=== PATIENT | female | born 1995 | race African-American/Black ===

== ENCOUNTER 2022-01-15 17:12 | Inpatient (IN) | payer MEDICAID, OTHER ==
[~2022-01-15] VITALS: Ht 165.1 cm; Wt 48.1 kg
[~2022-01-15 17:12] MED LIST: ACETYLCYSTEINE IV ONE; DEXT 5% IV ONE; WATER IV ONE
[2022-01-15] MEDS ORDERED: ONDANSETRON HCL 4MG/2ML INJ IV ONE (17:30)
[2022-01-15] MEDS ORDERED: SODIUM CHLORIDE 0.9% 1,000 ML IV ONE (17:30)
[2022-01-15 19:47] LABS: BASOPHILS % 1.3 % (0.0-2.0); EOSINOPHILS % 0.3 % (0.0-5.0); HEMATOCRIT. 30.5 % (36.0-48.0); HEMOGLOBIN. 8.9 g/dL (12.0-16.0); LYMPHOCYTES % 20.4 % (20.0-50.0); MEAN CORPUSCULAR HEMOGLOBIN 17.7 pg (28.0-32.0); MEAN CORPUSCULAR VOLUME 60.3 fL (81.0-99.0); MEAN PLATELET VOLUME 8.6 fl (7.4-10.4); MONOCYTES % 12.5 % (2.0-8.0); NEUTROPHILS % 65.5 % (40.0-76.0); PLATELET 362 x1000/uL (130-400); RED BLOOD CELL COUNT 5.05 mill/uL (4.2-5.4); RED CELL DISTRIBUTION WIDTH 26.1 % (11.6-14.6)
[2022-01-15 19:54] LABS: CHLORIDE 108 mEq/L (98-107)
[2022-01-15 19:55] LABS: HCG SCREEN NEGATIVE
[2022-01-15 20:09] LABS: ETHANOL BLOOD < 10 mg/dL
[2022-01-15] MEDS ORDERED: POTASSIUM CHLORIDE 20MEQ TABLET SR PO ONE (20:45)
[2022-01-15] MEDS ORDERED: MAGNESIUM 2 G PREMIX 50 ML IV ONE (20:45)
[2022-01-15 21:19] LABS: PLATELET ESTIMATE NORMAL
[2022-01-15 21:27] LABS: CLARITY URINE TURBID (CLEAR); COLOR URINE RED (YELLOW); KETONES URINE NEGATIVE (NEGATIVE); LEUKOCYTE ESTERASE URINE 2+ (NEGATIVE); NITRITE URINE POSITIVE (NEGATIVE); OCCULT BLOOD URINE 2+ (NEGATIVE); PROTEIN URINE 2+ (NEGATIVE); SPECIFIC GRAVITY URINE 1.044 (1.005-1.030); UROBILINOGEN URINE 0.2 E.U./dL (0.2-1.0)
[2022-01-15] MEDS ORDERED: MIDAZOLAM HCL 2 MG/2 ML VIAL IV ONE (21:30)
[2022-01-15] MEDS ORDERED: WATER IV NR (21:30)
[2022-01-15] MEDS ORDERED: ACETYLCYSTEINE IV NR (21:30)
[2022-01-15] MEDS ORDERED: DEXT 5% IV NR (21:30)
[2022-01-15 21:43] LABS: *BARBITURATES SCREEN URINE NEGATIVE (NEGATIVE); *BENZODIAZEPINES SCREEN URINE NEGATIVE (NEGATIVE); *COCAINE SCREEN URINE NEGATIVE (NEGATIVE); METHADONE URINE SCREEN NEGATIVE (NEGATIVE); OPIATES URINE SCREEN NEGATIVE (NEGATIVE); PHENCYCLIDINE URINE SCREEN NEGATIVE (NEGATIVE)
[2022-01-15 21:57] LABS: *AMPHETAMINES SCREEN URINE PRESUMTIVE POSITIVE (NEGATIVE); CANNABINOID URINE SCREEN PRESUMTIVE POSITIVE (NEGATIVE)
[2022-01-15] MEDS ORDERED: WATER IV ONE (22:30)
[2022-01-15] MEDS ORDERED: ACETYLCYSTEINE IV ONE (22:30)
[2022-01-15] MEDS ORDERED: CEFTRIAXONE 1 G PREMIX 50 ML IV ONE (22:30)
[2022-01-15] MEDS ORDERED: DEXT 5% IV ONE (22:30)
[2022-01-15 22:53] LABS: CHLORIDE 106 mEq/L (98-107)
[2022-01-15 23:00] LABS: ETHANOL BLOOD < 10 mg/dL
[2022-01-15] MEDS ORDERED: CEFTRIAXONE 1 G PREMIX 50 ML IV NR (23:45)
[2022-01-16 00:15] VITALS: BP_SYST 148; BP_SYST 168; BP_DIAS 85; BP_DIAS 92
[2022-01-16 02:00] VITALS: BP 147/93
[2022-01-16] MEDS ORDERED: ONDANSETRON HCL 4MG/2ML INJ IV PRN (02:00)
[2022-01-16] MEDS ORDERED: ACETYLCYSTEINE 200MG/ML 20% VIAL 30ML (INJ) IV ONE (02:00)
[2022-01-16] MEDS ORDERED: DEXT 5% IV ONE (02:30)
[2022-01-16] MEDS ORDERED: ACETYLCYSTEINE IV ONE (02:30)
[2022-01-16] MEDS ORDERED: WATER IV ONE (02:30)
[2022-01-16 04:00] VITALS: BP 119/77
[2022-01-16] MEDS ORDERED: DEXT 5%/0.45% NACL KCL 20MEQ/L 1,000 ML IV SCH (04:00)
[2022-01-16 06:00] VITALS: BP 125/83
[2022-01-16 06:25] LABS: MEAN CORPUSCULAR HEMOGLOBIN 17.9 pg (28.0-32.0); MEAN CORPUSCULAR VOLUME 61.6 fL (81.0-99.0); MEAN PLATELET VOLUME 8.7 fl (7.4-10.4); PLATELET 379 x1000/uL (130-400); RED BLOOD CELL COUNT 5.04 mill/uL (4.2-5.4); RED CELL DISTRIBUTION WIDTH 25.3 % (11.6-14.6)
[2022-01-16 06:36] LABS: CHLORIDE 107 mEq/L (98-107)
[2022-01-16] MEDS ORDERED: PANTOPRAZOLE SODIUM 40 MG/VIAL IV SCH (09:00)
[2022-01-16 09:05] LABS: PLATELET ESTIMATE NORMAL
== END 2022-01-16 08:20 | disposition left against medical advice (07) | DRG 812 ==
LOC: ER 17:12 → 5EST 21:04 → EDBEDREQTM 21:19 → EDBEDREQ 21:19 → ENRESERV 21:42 → CANRESERV 21:42 → EDBEDREQSVC 23:01 → ENRESERV 23:03 → 5EST 01-16 02:38
PROVIDERS: ADMIT Internal Medicine; ATTEND Internal Medicine
DX: T39.1X1A Poisoning by 4-Aminophenol derivatives, accidental (unintentional), initial encounter (principal); D64.9 Anemia, unspecified; T40.411A Poisoning by fentanyl or fentanyl analogs, accidental (unintentional), initial encounter; N39.0 Urinary tract infection, site not specified; F11.90 Opioid use, unspecified, uncomplicated; F12.90 Cannabis use, unspecified, uncomplicated; Z53.29 Procedure and treatment not carried out because of patient's decision for other reasons
CPT/HCPCS: 36415; 80053; 80305; 80307; 80320; 80329; 81003; 84703; 85025; 93005; 99291; J0132; J0696; J2250; J2405; J3475; J7030; J7060; G0480

== ENCOUNTER 2023-05-15 06:06 | Emergency (ER) | payer MEDICAID, OTHER ==
[~2023-05-15] VITALS: Ht 165.1 cm; Wt 74.6 kg
[2023-05-15 06:16] VITALS: O2SAT 10
[2023-05-15 08:22] LABS: BASOPHILS % 0.6 % (0.0-2.0); EOSINOPHILS % 0.9 % (0.0-5.0); HEMATOCRIT. 31.3 % (36.0-48.0); HEMOGLOBIN. 10.3 g/dL (12.0-16.0); LYMPHOCYTES % 26.9 % (20.0-50.0); MEAN CORPUSCULAR HEMOGLOBIN 30.8 pg (28.0-32.0); MEAN CORPUSCULAR VOLUME 93.3 fL (81.0-99.0); MEAN PLATELET VOLUME 7.3 fl (7.4-10.4); MONOCYTES % 6.5 % (2.0-8.0); NEUTROPHILS % 65.1 % (40.0-76.0); PLATELET 270 x1000/uL (130-400); RED BLOOD CELL COUNT 3.36 mill/uL (4.2-5.4); RED CELL DISTRIBUTION WIDTH 13.1 % (11.6-14.6); WHITE BLOOD COUNT 8.2 x1000/uL (4.5-11.0)
[2023-05-15 08:33] LABS: CLARITY URINE CLEAR (CLEAR); COLOR URINE YELLOW (YELLOW); GLUCOSE URINE NEGATIVE (NEGATIVE); KETONES URINE 1+ (NEGATIVE); LEUKOCYTE ESTERASE URINE 2+ (NEGATIVE); NITRITE URINE NEGATIVE (NEGATIVE); OCCULT BLOOD URINE NEGATIVE (NEGATIVE); PROTEIN URINE NEGATIVE (NEGATIVE); SPECIFIC GRAVITY URINE 1.026 (1.005-1.030)
[2023-05-15 08:35] LABS: ALANINE AMINOTRANSFERASE 9 IU/L (10-49); ALBUMIN 3.8 g/dL (3.2-4.8); ASPARTATE AMINOTRANSFERASE 15 IU/L (<34); BILIRUBIN TOTAL 0.4 mg/dL (0.1-1.0); CALCIUM 8.5 mg/dL (8.7-10.4); CARBON DIOXIDE 24 mEq/L (21-32); CHLORIDE 107 mEq/L (98-107); CREATININE 0.4 mg/dL (0.6-1.0); GLUCOSE 77 mg/dL (70-105); POTASSIUM 3.6 mEq/L (3.5-5.1); PROTEIN TOTAL 7.1 g/dL (6.0-8.3); SODIUM 137 mEq/L (136-145); UREA NITROGEN BLOOD 11 mg/dL (9-23)
[2023-05-15 08:59] LABS: BACTERIA URINE 1+; MUCUS URINE 1+ /lpf (< = 2+); SQUAMOUS EPITHELIAL CELL URINE 3+ /lpf (RARE/1+)
[2023-05-15 09:01] LABS: TRICHOMONAS URINE FEW
[2023-05-15 09:02] LABS: RBC URINE 0-2 /hpf (0-2)
[2023-05-15] MEDS ORDERED: METRONIDAZOLE 500MG TABLET PO ONE (09:15)
[2023-05-15 09:48] VITALS: BP 117/80; PULSE 82; RESP 18; TEMP 98.8
[2023-05-15] MEDS ORDERED: METR-167 MT (09:54)
[2023-05-15] MEDS ORDERED: CEPH250C2 MT (09:54)
== END 2023-05-15 10:13 | disposition home or self-care (01) ==
LOC: ER 06:06
DX: O23.43 Unspecified infection of urinary tract in pregnancy, third trimester (principal); N39.0 Urinary tract infection, site not specified; Z3A.28 28 weeks gestation of pregnancy
CPT/HCPCS: 36415; 76805; 80053; 81003; 81025; 85025; 99284